=== PATIENT | male | born 1945 | race Caucasian/White ===

== ENCOUNTER 2017-04-09 09:44 | Emergency (ER) | payer MEDICARE, BC ==
--- NOTE | 2017-04-09 10:19 | Emergency Department Record ---
History of Present Illness - General Chief complaint: Nausea, Vomiting, Diarrhea Stated complaint: NAUSEA AND FEVER Time Seen by Provider: 04/09/17 10:02 Source: Patient Mode of Arrival: Ambulatory Limitations: No limitations - History of Present Illness Initial comments: The patient is here due to not feeling well for the last 2 weeks. He has had intermittent frontal DIEZ's with nausea and dry heaving. He also has had intermittent low grade fevers. There is also reported to be weakness, blurred vision and unsteadiness on his feet with no energy. The patient denies any neck pain, CP, SOB, AP but he has had a mild cough. He did see his PCP a week ago and was given a shot of Rocephin and placed on Zithromax and Prednisone. Five days ago he felt much worse so he went to [facility] and was in the ER for 9 hours and then sent home. On that visit he had a neg CXR, Head CT, and Neg Head and Neck CTA. Since he is still not feeling well he came to [facility] for further evaluation. The patient has not had any Tylenol or Motrin today. MD complaint: Other Onset/Timin -: Week(s) Location: Other Severity: Mild Severity scale (1-10): 7 Quality: Aching Associated Symptoms: Cough, Fever/chills, Headaches, Nausea/vomiting, Weakness, Other - Related Data Home Medications Medication Instructions Recorded Confirmed Last Taken Albuterol Sulfate [Proair Hfa] 1 - 2 puff IH .EVERY 4-6 HOURS PRN 04/09/1704/09 Unknown Aspirin/Calcium Carbonate/Mag 325 mg PO Q6H 04/09/17 04/09/17 Unknown [Aspirin Buffered 325 mg Tab] Budesonide/Formoterol Fumarate 10.2 gm IH BID 04/09/17 04/09/17 Unknown [Symbicort 80-4.5 Mcg Inhaler] Calcium Carbonate/Vitamin D3 1 tab PO DAILY 04/09/17 04/09/17 04/09/17 [Calcium 250-Vit D3 125 Tablet] Ergocalciferol (Vitamin D2) 50,000 unit PO WEEKLY 04/09/17 04/09/17 04/09/17 [Vitamin D2] Fexofenadine HCl [Isidra Allergy] 180 mg PO ASDIR 04/09/17 04/09/17 Unknown Levothyroxine Sodium [Synthroid] 75 mcg PO DAILY 04/09/17 04/09/17 04/09/17 Allergies Allergy/AdvReac Type Severity Reaction Status Date / Time ciprofloxacin Allergy RASH Verified 04/09/17 10:02 itraconazole Allergy DIFFICULTY Verified 04/09/17 10:02 BREATHING Travel Screening - Travel/Exposure Within Last 30 Days Have you traveled within the last 30 days?: No - Travel/Exposure Within Last Year Have you traveled outside the [place] in the last year?: No - Additonal Travel Details Have you been exposed to anyone with a communicable illness?: No Review of Systems Constitutional: Reports: Chills, Fever, Malaise Eyes: Denies: Eye discharge ENT: Denies: Congestion Respiratory: Denies: Cough, Dyspnea Cardiovascular: Denies: Arrhythmia Endocrine: Reports: Fatigue Gastrointestinal: Reports: Nausea, Vomiting Genitourinary: Denies: Dysuria Musculoskeletal: Denies: Arthralgia Past Medical History - SOCIAL HISTORY Smoking Status: Current every day smoker Alcohol Use: None Drug Use: None - RESPIRATORY Hx Respiratory Disorders: Yes Hx Asthma: Yes Hx COPD: Yes - CARDIOVASCULAR Hx Cardio Disorders: No - NEURO Hx Neuro Disorders: Yes Hx Neuropathy: Yes - GI Hx GI Disorders: No - Hx Genitourinary Disorders: Yes Hx Prostate Problems: Yes - ENDOCRINE Hx Endocrine Disorders: Yes Hx Diabetes: Yes Hx Thyroid Disease: No - MUSCULOSKELETAL Hx Musculoskeletal Disorders: Yes Hx Back Injury: Yes - PSYCH Hx Psych Problems: No - HEMATOLOGY/ONCOLOGY Hx Hematology/Oncology Disorders: No Family Medical History Any Significant Family History?: No Physical Exam - General General Appearance: Alert, Oriented x3, Cooperative, No acute distress - Head Head exam: Atraumatic, Normocephalic, Normal inspection Head exam detail: General tenderness (There is general facial tenderness.). negative: Tenderness of temporal artery - Eye Eye exam: Normal appearance, PERRL, EOMI - ENT ENT exam: Normal exam, Mucous membranes moist, Normal external ear exam, Normal orophraynx. negative: TM's normal bilaterally (There is bilateral cerumen.) Throat exam: Normal inspection. negative: Tonsillar erythema, Tonsillar exudate - Neck Neck exam: Normal inspection, Full ROM. negative: Lymphadenopathy, Meningismus (The neck is very supple with no pain with ROM.), Tenderness - Respiratory Respiratory exam: Normal lung sounds bilaterally. negative: Respiratory distress - Cardiovascular Cardiovascular Exam: Regular rate, Normal rhythm, Normal heart sounds - GI/Abdominal GI/Abdominal exam: Soft, Normal bowel sounds. negative: Tenderness - Extremities Extremities exam: Normal inspection, Full ROM, Normal capillary refill. negative: Tenderness - Neurological Neurological exam: Abnormal gait (The patient is able to walk with a slight tremor which is unusual for him.), Alert, Oriented X3, Other (Neg Drift and Rhomberg.). negative: Altered, Motor sensory deficit, Normal gait - Psychiatric Psychiatric exam: negative: Anxious, Depressed Course Vital Signs 04/09/17 09:49 Temperature 98.6 F Pulse Rate 86 Respiratory 16 Rate Blood Pressure 140/86 Pulse Ox 94 L - Reevaluation(s) Reevaluation #1: The patient is doing better at this time and is resting comfortably. I did explain the lab results to him and that so far everything is basically normal. 04/09/17 11:02 Reevaluation #2: The patient is doing well at this time. I did discuss the issues with Dr. Domínguez at [facility] and he did accept the patient to the hospital. The patient agrees with the plan. 04/09/17 11:48 Medical Decision Making - Lab Data Result diagrams: 04/09/17 10:21 04/09/17 10:21 Disposition Disposition: Transfer Clinical Impression: Ataxia Disposition: Acute Care Hospital Transfer Transfer To: [facility] Reason For Transfer: Neurologist Accepting Physician: Catrachita Time Discussed w/Accepting Physician: 11:49 Forms: Patient Portal Access Time of Disposition: 11:49
[2017-04-09 10:26] LABS: BASO % 0.2 % (0-6); EOS % 1.1 % (0-6); HEMATOCRIT 45.5 % (42.0-52.0); HEMOGLOBIN 15.7 gm/dl (14.0-18.0); LYMPH % 17.3 % (16-45); MEAN CELL VOLUME 96.6 fl (81-97); MEAN CORPUSCULAR HEMOGLOBIN 33.3 pg (27-33); MEAN CORPUSCULAR HGB CONC 34.5 g/dl (32-36); MEAN PLATELET VOLUME 9.7 fl (7.4-10.4); MONO % 6.4 % (0-9); PLATELET COUNT 228 K/uL (130-400); RED BLOOD COUNT 4.71 M/uL (4.40-5.70); RED CELL DISTRIBUTION WIDTH 12.9 % (11.5-14.5); WHITE BLOOD COUNT W/O DIFF 9.5 K/uL (4.2-12.2)
[2017-04-09] MEDS: 0.9 % SODIUM CHLORIDE 1,000 ML BAG IV ONE (10:27)
[2017-04-09] MEDS: ONDANSETRON HCL IV 4 MG/2 ML VIAL IV ONE (10:27)
[2017-04-09] MEDS: ACETAMINOPHEN 325 MG TAB PO ONE (10:27)
[2017-04-09 10:32] LABS: URINE APPEARANCE CLEAR; URINE BILIRUBIN NEGATIVE (NEGATIVE); URINE BLOOD NEGATIVE (NEGATIVE); URINE COLOR YELLOW; URINE GLUCOSE (UA) NEGATIVE (NEGATIVE); URINE KETONE NEGATIVE (NEGATIVE); URINE LEUKOCYTE ESTERASE NEGATIVE (NEGATIVE); URINE NITRITE NEGATIVE (NEGATIVE); URINE PROTEIN NEGATIVE (NEGATIVE); URINE UROBILINOGEN 0.2 E.U./dL (0.20 - 1.00)
[2017-04-09 10:37] LABS: ALKALINE PHOSPHATASE 63 U/L (38-126); ALT/SGPT 23 U/L (21-72); AST/SGOT 15 U/L (17-59); BILIRUBIN,TOTAL 0.65 mg/dL (0.2-1.3); BLOOD UREA NITROGEN 18 mg/dL (9-20); EST GLOMERULAR FILTRATION RATE > 60 ml/min; GLUCOSE,RANDOM 154 mg/dL (70-110); TOTAL PROTEIN 7.4 gm/dL (6.3-8.2)
[2017-04-09 10:49] LABS: C-REACTIVE PROTEIN < 0.5 mg/dL (0.0-0.9)
[2017-04-09 11:08] LABS: THYROID STIMULATING HORMONE 4.77 uIU/ml (0.465-4.68)
[2017-04-09] MEDS: KETOROLAC 30 MG/ML VIAL IVP ONE (12:54)
[2017-04-09] MEDS ORDERED: HYDROMORPHONE HCL 1 MG/ML CPJ IM ONE (13:38)
[2017-04-09] MEDS: HYDROMORPHONE HCL 1 MG/ML CPJ IVP ONE (13:50)
== END 2017-04-09 14:22 | disposition short-term general hospital (02) ==
LOC: ER 09:44
DX: R27.8 Other lack of coordination (principal); E03.9 Hypothyroidism, unspecified; J44.9 Chronic obstructive pulmonary disease, unspecified; F17.200 Nicotine dependence, unspecified, uncomplicated; E11.42 Type 2 diabetes mellitus with diabetic polyneuropathy; R50.9 Fever, unspecified; R51 Headache; R11.2 Nausea with vomiting, unspecified
CPT/HCPCS: 80048; 80076; 81003; 84443; 85025; 85651; 86140; 96374; 96375; 99285; J1170; J1885; J2405; J7030

== ENCOUNTER 2019-07-10 12:51 | Day surgery (SDC) | payer MEDICARE, BC ==
[2019-07-10] MEDS ORDERED: LIDOCAINE 2% MDV (20MG/ML) 20ML VIAL IV ONE (12:52)
[2019-07-10] MEDS ORDERED: PROPOFOL 10 MG/ML VIAL IV ONE (12:52)
--- NOTE | 2019-07-11 13:10 | Operative Note ---
OPERATION: COLONOSCOPY with cold forceps and cold snare polypectomies. PREOPERATIVE DIAGNOSIS: Personal history of colon polyps. POSTOPERATIVE DIAGNOSES: 1. Sigmoid colon polyps x3. 2. Sigmoid diverticulosis, moderate to severe. PREPARATION QUALITY: Good. ESTIMATED BLOOD LOSS: Minimum. COMPLICATIONS: None apparent. SPECIMENS: Sigmoid colon polyps x3. PROCEDURE: After informed consent was obtained from the patient, he was placed in the left lateral decubitus position in the endoscopy suite, sedated and monitored by the department of anesthesia. Digital rectal exam was unremarkable. A well-lubricated [id number] colonoscope was inserted into the rectum and advanced to the cecum. Preparation quality was good. The cecum, cecal bulb, ileocecal valve, appendiceal orifice, ascending colon, transverse colon, and descending colon were free of inflammatory changes, mass lesions, or polyp. There were [id number] sigmoid diverticular changes as well as 3 polyps. Two removed with a cold forceps, as they were 3-4 mm in diameter. There was a 5 mm polyp removed with a cold snare. Minimal bleeding was noted and the polyps were retrieved. The rectum was unremarkable in forward and J-turn views. The endoscope was straightened, the rectal ampulla deflated, and the endoscope was removed. RECOMMENDATIONS: The patient should follow a high-fiber diet. He will require repeat exam in 3-5 years provided his health allows. As always, thank you for allowing me to participate in the healthcare of your patients. ELLEN
== END 2019-07-10 14:18 | disposition home or self-care (01) ==
LOC: HOP 12:51
PROVIDERS: ATTEND Internal Medicine Gastroenterology
DX: Z12.11 Encounter for screening for malignant neoplasm of colon (principal); Z86.010 Personal history of colon polyps; D12.5 Benign neoplasm of sigmoid colon; K57.30 Diverticulosis of large intestine without perforation or abscess without bleeding; R73.03 Prediabetes; J44.9 Chronic obstructive pulmonary disease, unspecified; J45.909 Unspecified asthma, uncomplicated